=== PATIENT | male | born 1955 | race Caucasian/White ===

== ENCOUNTER → 2016-05-27 | Outpatient (CLI) | payer OTHER ==
--- NOTE | 2016-05-27 09:36 | CARDIOVASCULAR REPORT ---
"Cerebrovascular Exam Indications: 780.2 Syncope and collapse. IMPRESSIONS 1. The bilateral vertebral arteries are patent with normal antegrade flow. 2. Study suggests less than 20% stenosis involving the right internal carotid artery and the left internal carotid artery. History: Coronary artery disease. Risk factors: Hypertension. Dyslipidemia. Carotid duplex study. Complete study and Doppler flow study including spectral analysis, color and mary scale imaging. Height: Height: 170.2cm. Height: 67in. Weight: Weight: 90.7kg. Weight: 199.6lb. Body mass index: BMI: 31.3kg/m^2. Body surface area: BSA: 2.1m^2. Location: Vascular laboratory. Patient status: Outpatient. Tables: Arterial flow: + +--------+--------+ |Location |V sys |V ed | + +--------+--------+ |Right CCA - proximal|85.6cm/s|23.6cm/s| + +--------+--------+ |Right CCA - distal |96.6cm/s|29.1cm/s| + +--------+--------+ |Right ECA |82.5cm/s|--------| + +--------+--------+ |Right ICA - proximal|76.2cm/s|24.4cm/s| + +--------+--------+ |Right ICA - mid |63.6cm/s|22cm/s | + +--------+--------+ |Right ICA - distal |71.5cm/s|29.9cm/s| + +--------+--------+ |Right vertebral |38.5cm/s|--------| + +--------+--------+ |Left CCA - proximal |84.9cm/s|24.4cm/s| + +--------+--------+ |Left CCA - distal |90.4cm/s|28.3cm/s| + +--------+--------+ |Left ECA |123cm/s |--------| + +--------+--------+ |Left ICA - proximal |101cm/s |29.1cm/s| + +--------+--------+ |Left ICA - mid |73.1cm/s|25.1cm/s| + +--------+--------+ |Left ICA - distal |73.9cm/s|26.7cm/s| + +--------+--------+ |Left vertebral |38.5cm/s|--------| + +--------+--------+ Velocity ratios: + + + + + + | |Right, V sys|Right, V ed|Left, V sys|Left, V ed| + + + + + + |Max ICA/dist CCA|0.79 |1.03 |1.12 |1.03 | + + + + + + (Report amended ) Electronically signed by: Gabriel Gomez [id number]"
== END ==
LOC: RT 09:04
DX: R55 Syncope and collapse (principal)